=== PATIENT | female | born 1965 | race Caucasian/White ===

== ENCOUNTER 2020-08-11 11:24 | Emergency (ER) | payer MEDICAID ==
--- OUTSIDE RECORDS SUMMARY | 2020-08-11 11:27 | XMS REPORT | Continuity of Care Document ---
:1965 Author Organization [facility] t Address [address] [place] [address] Care Team Providers Name Role Phone UNKNOWN Primary Care Physician Unavailable Advance Directives Directive Decision Effective Date Termination Date Comments Sour ce Yes N/A Historical Fac ility for Backload Problems Condition Condition Condition Status Onset Resolution Last Treating Co mments Source Name Details Category Date Date Treatment Clinician Date Problem Problem Histori tom Facilit y for Backloa d Allergies, Adverse Reactions, Alerts This patient has no known allergies or adverse reactions. Social History Social Habit Start Date Stop Date Quantity Comments Source Sex Assigned At [birth year] Female [facility] Facility 00:00:00 00:00:00 for Backload Smoking Status Start Date Stop Date Source Unknown if ever smoked [facility] Facility for Backload Medications This patient has no known medications. Procedures Procedure Date / Time Performing Clinician Source Performed Cataract extract, 2020-06-22 00:00:00 Historical Facility extracaps, phacoemuls, for Backl oad w/ prosth lens insert, 1 stage, complex XCAPSL CTRC RMVL W/O ECP 2020-06-08 00:00:00 His torical Facility for Backload Inj midazolam 2020-06-08 00:00:00 Historical F acility hydrochloride for Backload Ringers lactate infusion 2020-06-08 00:00:00 His torical Facility for Backload Post chmbr intraocular 2020-06-08 00:00:00 Histo rical Facility lens for Backload Encounters Start End Encounter Admission Attending Care Care Encounter Source Date/Time Date/Time Type Type Clinicians Facility Department ID 2020-06-22 2020-06-22 Jammie LUCIANO [id number] Histori 07:36:00 10:27:[address] [facility] Facil it y for Backloa d 2020-06-08 2020-06-08 Departed JUAN LUCIANO [id number] Histori 07:27:00 09:55:[address] [facility] Day [facility] Facil it y for Backloa d 2016-12-06 2016-12-06 Emergency E [facility] [id number] Medical 09:50:00 09:50:00 [facility] Results Test Description Test Time Test Comments Results Result Comments Source URINE DRUG SCREEN 2020-07-07 02:10:00 Test Item Value Reference Range Interpretation Comme nts AMPHET (test code = BAMP) NEGATIVE NEGATIVE Th is is an unconfirmed screening. Result are to be used for medical purpose s (treatment) only. Not inte nded for non-medical pur poses. Cut-off concentration f or a positive result for each drug: Amphetamine - 1,000 ng/ml B arbiturate - 200 ng/ml Benzodiaz epine - 200 ng/ml Cannabinoids - 50 ng/ml Cocaine - 300 ng/ml Opiat es - 300 ng/ml PCP - 25 ng/ml BARBITURATES (test code = BBAR) NEGATIVE NEGATIVE BENZO (test code = BBENZ) NEGATIVE NEGATIVE CANNABS (test code = BCANN) NEGATIVE NEGATIVE COCAINE (test code = BCOC) NEGATIVE NEGATIVE OPIATES (test code = BOPI) NEGATIVE NEGATIVE PCP (test code = BMTPCP) NEGATIVE NEGATIVE VALPROIC [id number] 02:09:00 Test Item Value Reference Range Interpretation Comments VALP (test code = VALP) 109 UG/ML 50-100 H BMP, BASIC METABOLIC [id number] 02:08:00 Test Item Value Reference Range Interpretation Comments SODIUM (test code 141 MMOL/L 137-145 = NA) K+ (test code = 4.3 MMOL/L 3.5-5.1 KSERUM) CHLORIDE (test 104 MMOL/L 98-107 code = CL) CO2 (test code = 30 MMOL/L 22-30 CO2) BUN (test code = 15 MG/DL 7-17 BUN) CREA (test code = 0.6 MG/DL 0.7-1.2 L CREA) GLUCOSE (test code 112 MG/DL 70-99 H Fasting glucose = GLUCOSE) normal <100 MG/ DL- [employer] recommendation* * CALCIUM (test code 10.4 MG/DL 8.4-10.2 H = CABLOOD) GFR (test code = 112 A GFR of >9 0 GFR) mL/min/1.73m2 mL/min/1.73m2 is considered norm al. The GFR calcula tion on patients ove r 70 years of age is not validated by e salvage win[employer] an d may not represent t he patients true r enal function. [id number] 01:17:00 Test Item Value Reference Range Interpretation Comments WBC (test code = 8.4 K/UL 3.5-10.9 WBC) RBC (test code = 4.64 M/UL 4.0-5.0 RBC) HGB (test code = 14.4 G/DL 11.5-15.5 HGB) HCT (test code = 44.5 % 34-46 HCT) MCV (test code = 95.9 FL 80-98 MCV) MCH (test code = 31.0 PG 28-32 MCH) MCHC (test code = 32.4 G/DL 32.5-36.5 L MCHC) RDW (test code = 12.1 % 11.5-14.5 RDW) PLT (test code = 333 K/UL 150-450 PLT) MPV (test code = 10.7 FL 7.4-10.4 H MPV) MANDIFF (test code = NO MANDIFF) SCAN (test code = NO SCAN) NEUT% (test code = 47.4 % 40-75 NEUT%) LYMPH% (test code = 40.8 % 24-44 LYMPH%) MONO% (test code = 9.8 % 0-13 MONO%) EOS% (test code = 1.4 % 0-4 EOS%) BASO % (test code = 0.4 % 0-2 BASO%) IG (test code = IG) 0 % 0-1 IG% (test code = 0.2 % 0-1 IG% = Metam yelocytes, IG%) Myelocytes, and Promyelocytes. (Immature neutr ophils not including " bands".) > 3% IG indic ates risk of sepsis NRBC% (test code = 0 /100 WBC NRBC%) ABS NEUT (test code 4.0 K/UL 1.2-7.2 = NEUT) [id number] 00:48:00 Test Item Value Reference Range Interpretation Comments GLUCOSE (test code = URGLU) NEGATIVE MG/DL NEG-100 BILIRUBN (test code = URBILI) NEGATIVE NEGATIVE KETONE (test code = URKET) NEGATIVE MG/DL NEGATIVE BLOOD (test code = URBLD) TRACE UR PH (test code = URPH) 8.5 5.0-7.5 H PROTEIN (test code = URPRO) NEGATIVE MG/DL NEGATIVE NITRITES (test code = URNIT) NEGATIVE NEGATIVE UROBILINGEN (test code = 0.2 EU/DL 0.2-1.0 URURO) LEUKOCYT (test code = URLEU) NEGATIVE NEGATIVE UA COLOR (test code = UA YELLOW YELLOW COLOR) CLARITY (test code = CLARITY) CLEAR CLEAR SP GRAV (test code = URSPGRAV) 1.005 1.000-1.025 UAMICRO (test code = UAMICRO) YES WBC (test code = URWBC) 3 /HPF 0-5 RBC (test code = URRBC) 3 /HPF 0-2 H CASTS (test code = CAST) 1 /LPF 0-3 UR EPI (test code = EPI) 62 /LPF BACTERIA (test code = NEGATIVE NONE BACTERIA) CHEST XR 2 [id number] 15:10:00 [facility] 1965 Sex: F[address] [id number] IMAGING REPORTPatient Name: Pretty ROSENBERG of Service: [id number]: 54 Sex: F Order #: [id number] Room: OPEDOB: 1965 X-Ray Number: [id number] Record Number: [id number] Number: [id number] Physician: MEG RUSSELLAROrdering Physician: SUKHI RUSSELL VIEWS 05/18/2020HISTORY: Preoperative respiratory evaluation, cough, congestion, smokerCOMPARISON: NoneTECHNIQUE: PA and lateral views of the chestLeft upper chest neural stimulator device is in place.The lead tip isprojected over the left lower neck soft tissues.Cardiac, hilar, and mediastinal structures are within normal limits forsize. Lungs are moderately hyperinflated without clear acute process.Msbc-td-rrohlugu emphysematous changes are suspected. No effusion orpneumothorax. No acute bony or soft tissue abnormalities are identified.IMPRESSION:No acute process with chronic appearing findings as discussed.Electronically Signed By: Real Dover M.D., 05/18/2020 3:08 PMLegally authenticated by MARISOL JUDD 2020-05-18 15:08:00CT MAXILLOFACIAL WO CONTRAST 2016-12-06 12:30:20CT MAXILLOFACIAL WITHOUT CONTRAST:CLINICAL HISTORY: Left neck tenderness.Radiation dose lowering techniques were used according to ALARAprinciple.Images were obtained through the facial bones, and neckwithout IVcontrast. No previous studies are available for correlation at the timeof interpretation. There is enlargement of the left submandibular glandcompared to the contralateral right. 2 small calcifications are seenwithin the left submandibular gland image measuring approximately 3 mmin diameter.There also are 2 small calculi within Bledsoe's duct. Thelargest measures 2.5 mm with the smallest measuring 1 mm. There isenlargement of the left submandibular gland which may reflectsialoadenitis. A vagus nerve stimulator is in place within the left sideof the neck. Patient is status post a previousright frontotemporalcraniotomy. By history the patient had a aneurysm repair.IMPRESSION:1. Sialolithiasis with the 2 calculi seen within the left submandibulargland and 2 small stones within the left Vaughn's duct. The leftsubmandibular gland is also enlarged compared to the contralateral rightsuspect for sialoadenitis.Report was printed in the emergency room at 1240 hours.CT MAXILLOFACIAL W [id number] 12:30:20CT MAXILLOFACIAL WITHOUT CONTRAST:CLINICAL HISTORY: Left neck tenderness.Radiation dose lowering tech niques were used according to ALARAprinciple.Images were obtained through the facial bones, and neckwithout IVcontrast. No previous studies are available for correlation at the timeof interpretation. There is enlargement of the left submandibular glandcompared to the contralateral right. 2 small calcifications are seenwithin the left submandibular gland image measuring approximately 3 mmin diameter.There also are 2 small calculi within Bledsoe's duct. Thelargest measures 2.5 mm with the smallest measuring 1 mm. There isenlargement of the left submandibular gland which may reflectsialoadenitis. A vagus nerve stimulator is in place within the left sideof the neck. Patient is status post a previousright frontotemporalcraniotomy. By history the patient had a aneurysm repair.IMPRESSION:1. Sialolithiasis with the 2 calculi seen within the left submandibulargland and 2 small stones within the left Bledsoe's duct. The leftsubmandibular gland is also enlarged compared to the contralateral rightsuspect for sialoadenitis.Report was printed in the emergency room at 1240 hours.
[2020-08-11] MEDS ORDERED: CLINDAMYCIN 600MG/D5W 600 MG/50 ML BAG IV ONE (12:25)
[2020-08-11] MEDS ORDERED: NA CHLORIDE 0.9% 1,000 ML ONE (12:25)
--- NOTE | 2020-08-11 12:38 | RAD REPORT ---
EXAM DESCRIPTION: Adrienne Single View08/11/2020 12:26 pm CLINICAL HISTORY: Congestion COMPARISON: none FINDINGS: The lungs appear clear of acute infiltrate. The heart is normal size. Stimulator extends into the left neck IMPRESSION: No acute abnormalities displayed
[2020-08-11] MEDS ORDERED: KETOROLAC 30 MG/ML INJ ONE (12:51)
[2020-08-11 12:56] LABS: Basophils % 0.5 % (0-1.3); Hematocrit 44.2 % (36.0-45.0); Lymphocytes % 11.5 % (15.3-44.8); MPV 10.2 fL (7.6-11.3)
[2020-08-11 13:03] LABS: ALT/SGPT 14 U/L (12-78); AST/SGOT 7 U/L (15-37); Albumin 4.3 g/dL (3.4-5.0); Alkaline Phosphatase 91 U/L (45-117); BUN Blood Urea Nitrogen 9 mg/dL (7-18); Bicarbonate 31 mmol/L (21-32); Bilirubin Total 0.4 mg/dL (0.2-1.0); Glucose Level 99 mg/dL (74-106); Potassium 3.9 mmol/L (3.5-5.1); Protein, Total 7.9 g/dL (6.4-8.2); Sodium Level 140 mmol/L (136-145)
--- NOTE | 2020-08-11 13:42 | RAD REPORT ---
EXAM DESCRIPTION: CT - Soft Tissue Neck W/Contr - 08/11/2020 1:15 pm CLINICAL HISTORY: Neck pain and swelling COMPARISON: None. TECHNIQUE: Computed axial tomography of the neck was obtained. 50 cc Isovue 300 was administered in travenously. Coronal and sagittal reconstruction was performed. All CT scans are performed using dose optimization technique as appropriate and may include automated exposure control or mA/KV adjustment according to patient size. FINDINGS: Vague small low-density areas are present within the left submandibular gland. Stranding i s present within the adjacent extending to the left floor of mouth. A edema involves the epiglottis a nd left lateral oropharynx. Remainder of the airway is unremarkable. The parotid, right submandibular and thyroid glands are unremarkable. . Fluid within the sinuses/mastoids is not noted. IMPRESSION: Vague small low-density areas within the left submandibular gland probably early abscess . There is a left floor of mouth cellulitis. The epiglottis and left lateral oropharyngeal wall are e dematous.
--- NOTE | 2020-08-11 14:29 | EDPHYS ---
Physician Documentation [facility] Name: Cristina Delong Age: 54 yrs Sex: Female : 1965 Arrival Date: 08/11/2020 Time: 11:25 Bed 16 Private MD: ED Physician Denia Bonilla HPI: 08/11 12:07 This 54 yrs old Female presents to ER via Ambulatory with complaints of left neck pain ma2 and swelling. 12:07 Onset: The symptoms/episode began/occurred gradually, 1 day(s) ago. Associated signs ma2 and symptoms: Pertinent negatives: diaphoresis, hemoptysis. Severity of symptoms: At their worst the symptoms were moderate in the emergency department the symptoms are unchanged. The patient has not experienced similar symptoms in the past. Historical: - Allergies: 11:35 PENICILLINS; iw - Home Meds: 11:35 Depakene Oral [Active]; Ativan Oral [Active]; Clonazepam Oral [Active]; iw - PMHx: 11:35 Seizures; iw 11:36 COPD; iw - PSHx: 11:35 brain surgery at 11 years old; Hysterectomy; iw - Immunization history:: Adult Immunizations not up to date. - Social history:: Smoking status: Patient reports the use of cigarette tobacco products, smokes one pack cigarettes per day. Patient/guardian denies using alcohol, IV drugs, The patient lives with family. - Family history:: not pertinent. ROS: 12:07 Constitutional: Negative for fever, chills, and weight loss. ma2 12:07 All other systems are negative. Exam: 12:07 Constitutional: This is a well developed, well nourished patient who is awake, alert, ma2 and in no acute distress. Head/Face: Normocephalic, atraumatic. Eyes: Pupils equal round and reactive to light, extra-ocular motions intact. Lids and lashes normal. Conjunctiva and sclera are non-icteric and not injected. Cornea within normal limits. Periorbital areas with no swelling, redness, or edema. ENT: Nares patent. No nasal discharge, no septal abnormalities noted. Tympanic membranes are normal and external auditory canals are clear. Oropharynx with no redness, swelling, or masses, exudates, or evidence of obstruction, uvula midline. Mucous membranes moist. Neck: left neck swelling at submandibular area, soft and tender, no skin changes, d/t severe pain unable to check for fluctuence. Trachea midline, no thyromegaly or masses palpated, no full range of motion without nuchal rigidity, or vertebral point tenderness. No Meningismus. Chest/axilla: Normal chest wall appearance and motion. Nontender with no deformity. No lesions are appreciated. Cardiovascular: Regular rate and rhythm with a normal S1 and S2. No gallops, murmurs, or rubs. Normal PMI, no JVD. No pulse deficits. Respiratory: Lungs have equal breath sounds bilaterally, clear to auscultation and percussion. No rales, rhonchi or wheezes noted. No increased work of breathing, no retractions or nasal flaring. Abdomen/GI: Soft, non-tender, with normal bowel sounds. No distension or tympany. No guarding or rebound. No evidence of tenderness throughout. Skin: Warm, dry with normal turgor. Normal color with no rashes, no lesions, and no evidence of cellulitis. MS/ Extremity: Pulses equal, no cyanosis. Neurovascular intact. Full, normal range of motion. Neuro: Awake and alert, GCS 15, oriented to person, place, time, and situation. Cranial nerves II-XII grossly intact. Motor strength 5/5 in all extremities. Sensory grossly intact. Cerebellar exam normal. Normal gait. Vital Signs: 11:32 BP 169 / 102; Pulse 112; Resp 18; Temp 99.9(TE); Pulse Ox 93% on R/A; Weight 57.15 kg; iw Height 5 ft. 3 in. (160.02 cm); Pain 10/10; 11:59 Pulse 108; Resp 20; Pulse Ox 93% on R/A; bw 12:58 BP 149 / 98; Pulse 102; Resp 18; Pulse Ox 95% on R/A; bw 16:56 BP 147 / 90; Pulse 103; Resp 18; Pulse Ox 95% on R/A; bw 11:32 Body Mass Index 22.32 (57.15 kg, 160.02 cm) iw MDM: 11:40 Patient medically screened. ma2 14:23 Differential diagnosis: Anxiety Reaction Bronchitis Psychogenic. Differential ma2 diagnosis: reactive airway disease, Sepsis. Data reviewed: vital signs, nurses notes. ED course: patient has left submandibular abscess and cellulitis of oral cavity and floor of mouth. she is able to speak with no distress, no stridor, oropharynx id mildly edematous yet intact. patient is been in er for 3 hrs and has mildly improved after antibiotics . 14:23 ED course: dr. steen has been contacted today and she stated she is out of town. will ma2 transfer for higher level of care as no ent service available . 14:30 ED course: floor of mouth is not hard, no Carlos angina. [facility] 15:10 ED course: discussed with dr. Viveros ent at [facility] and accepted by Hospitalist dr. laith Sahu. 08/11 12:02 Order name: Blood Culture Adult (2) [facility] 08/11 12:02 Order name: CBC with Diff; Complete Time: 13:31 [facility] 08/11 12:02 Order name: CMP; Complete Time: 13:31 [facility] 08/11 12:02 Order name: Strep; Complete Time: 13:36 [facility] 08/11 13:34 Order name: Throat Culture EDMS 08/11 12:02 Order name: CT Soft Tissue Neck W/contr; Complete Time: 13:55 [facility] 08/11 12:03 Order name: Chest Single View XRAY; Complete Time: 13:31 [facility] 08/11 14:09 Order name: SARS-COV-2 RT PCR; Complete Time: 14:11 EDMS Administered Medications: 12:29 Drug: Clindamycin 600 mg Route: IVPB; Infused Over: 30 mins; Site: left antecubital; bw 16:58 Follow up: Response: No adverse reaction; IV Status: Completed infusion bw 12:30 Drug: NS 0.9% 1000 ml Route: IV; Rate: 1 bolus; Site: left antecubital; bw 16:58 Follow up: Response: No adverse reaction; IV Status: Completed infusion bw 12:59 Drug: TORadol 30 mg Route: IVP; Site: left antecubital; bw 16:58 Follow up: Response: No adverse reaction bw 14:56 Drug: MethylPrednisoLONE 125 mg Route: IVP; Site: left antecubital; bw 16:59 Follow up: Response: No adverse reaction bw 14:56 Drug: Benadryl (diphenhydrAMINE) 25 mg Route: IVP; Site: left antecubital; bw 16:57 Follow up: Response: No adverse reaction 14:56 Drug: vancoMYCIN 1 grams Route: IVPB; Infused Over: 2 hrs; Site: left antecubital; bw 16:57 Follow up: Response: No adverse reaction; IV Status: Completed infusion Disposition: 08/11/20 14:28 Transfer ordered to Other Acute Care Facility. Diagnosis are Cutaneous abscess of neck, Cellulitis and acute lymphangitis of face and neck. - Reason for transfer: Higher level of care. - Accepting physician is [facility]. - Condition is Stable. - Problem is new. - Symptoms are unchanged. Signatures: Dispatcher [employer] EDMS Nanci Salcido RN RN iw Denia Bonilla MD MD ma2 Shirley Anne RN RN ca1 Adia Crawford RN RN Corrections: (The following items were deleted from the chart) 13:12 12:25 Maxillofacial W/Cont+CT.RAD.BRZ ordered. EDMS EDMS 13:13 12:02 CORONAVIRUS+MR.LAB.BRZ ordered. EDMS EDMS 18:54 14:28 08/11/2020 14:28 Transfer ordered to Other Acute Care Facility. Diagnosis is ca1 Cutaneous abscess of neck; Cellulitis and acute lymphangitis of face and neck. Reason for transfer: Higher level of care. Accepting physician is [facility]. Condition is Stable. Problem is new. Symptoms are unchanged. ma2
--- NOTE | 2020-08-11 14:29 | ER ---
Nurse's Notes [facility] Name: Cristina Delong Age: 54 yrs Sex: Female : 1965 Arrival Date: 08/11/2020 Time: 11:25 Bed 16 Private MD: Diagnosis: Cutaneous abscess of neck;Cellulitis and acute lymphangitis of face and neck Presentation: 08/11 11:32 Chief complaint: Spouse and/or significant other states: on the way home from boat [employer] yesterday she started having pain in left side of neck and had some swelling, woke up this morning and it was worse, can hardly open her mouth. Coronavirus screen: At this time, the client does not indicate any symptoms associated with coronavirus-19. Ebola Screen: Patient negative for fever greater than or equal to 101.5 degrees Fahrenheit, and additional compatible Ebola Virus Disease symptoms Patient denies exposure to infectious person. Patient denies travel to an Ebola-affected area in the 21 days before illness onset. No symptoms or risks identified at this time. Initial Sepsis Screen: Does the patient meet any 2 criteria? No. Patient's initial sepsis screen is negative. Does the patient have a suspected source of infection? No. Patient's initial sepsis screen is negative. Risk Assessment: Do you want to hurt yourself or someone else? Patient reports no desire to harm self or others. Onset of symptoms was August 10, 2020. 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 - Social history:: Smoking status: Patient reports the use of cigarette tobacco products, smokes one pack cigarettes per day. Patient/guardian denies using alcohol, IV drugs, The patient lives with family. - Family history:: not pertinent. Screenin:59 Abuse screen: Denies threats or abuse. Nutritional screening: No deficits noted. bw Tuberculosis screening: No symptoms or risk factors identified. Fall Risk None identified. Assessment: 11:59 Pain: Complains of pain in throat tongue. Cardiovascular: Rhythm is regular. bw Respiratory: Airway is patent Respiratory effort is even, unlabored, Breath sounds are clear Breath sounds are diminished bilaterally. 12:58 Reassessment: Patient appears in no apparent distress at this time. Patient and/or bw family updated on plan of care and expected duration. Pain level reassessed. Patient is alert, oriented x 3, equal unlabored respirations, skin warm/dry/pink. 14:02 Reassessment: Patient appears in no apparent distress at this time. Patient and/or bw family updated on plan of care and expected duration. Pain level reassessed. Patient is alert, oriented x 3, equal unlabored respirations, skin warm/dry/pink. 16:55 Reassessment: Patient appears in no apparent distress at this time. No changes from bw previously documented assessment. Patient and/or family updated on plan of care and expected duration. Pain level reassessed. Patient is alert, oriented x 3, equal unlabored respirations, skin warm/dry/pink. food provided to patient. 18:22 Reassessment: report given to devon. Vital Signs: 11:32 BP 169 / 102; Pulse 112; Resp 18; Temp 99.9(TE); Pulse Ox 93% on R/A; Weight 57.15 kg; iw Height 5 ft. 3 in. (160.02 cm); Pain 10/10; 11:59 Pulse 108; Resp 20; Pulse Ox 93% on R/A; bw 12:58 BP 149 / 98; Pulse 102; Resp 18; Pulse Ox 95% on R/A; bw 16:56 BP 147 / 90; Pulse 103; Resp 18; Pulse Ox 95% on R/A; bw 11:32 Body Mass Index 22.32 (57.15 kg, 160.02 cm) iw ED Course: 11:25 Patient arrived in ED. ds1 11:34 Triage completed. iw 11:35 Arm band placed on. iw 11:40 Denia Bonilla MD is Attending Physician. ma2 11:59 Adia Crawford, SHILPA is Primary Nurse. bw 11:59 Patient has correct armband on for positive identification. Call light in reach. Side bw rails up X 1. Pulse ox on. NIBP on. 11:59 No provider procedures requiring assistance completed. bw 12:08 Radiology exam delayed due to lab results not completed at this time. (BUN/Creatinine) md1 IV insertion attempt and/or patient not having appropriate IV at this time. 12:26 Chest Single View XRAY In Process Unspecified. EDMS 13:15 CT Soft Tissue Neck W/contr In Process Unspecified. EDMS 14:15 initiated a transfer with Jason from the [facility] Transfer Center. eb 14:[address] Viveros the ENT international flight attendant for [facility] with Dr. Bonilla for patient transfer eb consultation. 15:06 connected the Hospitalist international flight attendant for [facility] with Dr. Bonilla for patient eb transfer consultation. 16:17 administrative approval given by Rachel Mccall Rn/ patient has been accepted to [facility] 4A [id number]/ Dr. Gaston Taylor has accepted the patient in transfer/ report to be called to [phone]. Administered Medications: 12:29 Drug: Clindamycin 600 mg Route: IVPB; Infused Over: 30 mins; Site: left antecubital; bw 16:58 Follow up: Response: No adverse reaction; IV Status: Completed infusion bw 12:30 Drug: NS 0.9% 1000 ml Route: IV; Rate: 1 bolus; Site: left antecubital; bw 16:58 Follow up: Response: No adverse reaction; IV Status: Completed infusion bw 12:59 Drug: TORadol 30 mg Route: IVP; Site: left antecubital; bw 16:58 Follow up: Response: No adverse reaction bw 14:56 Drug: MethylPrednisoLONE 125 mg Route: IVP; Site: left antecubital; bw 16:59 Follow up: Response: No adverse reaction bw 14:56 Drug: Benadryl (diphenhydrAMINE) 25 mg Route: IVP; Site: left antecubital; bw 16:57 Follow up: Response: No adverse reaction bw 14:56 Drug: vancoMYCIN 1 grams Route: IVPB; Infused Over: 2 hrs; Site: left antecubital; bw 16:57 Follow up: Response: No adverse reaction; IV Status: Completed infusion bw Outcome: 14:28 ER care complete, transfer ordered by MD. ozuna 18:54 Patient left the ED. ca1 Signatures: Dispatcher [employer] EDMarcelle Loredo ds1 Nanci Salcido RN RN iw Denia Bonilla MD MD ma2 Teodora Holliday Cheryl, RN RN [facility] Supriya Reynolds md1 Adia Crawford RN RN bw Corrections: (The following items were deleted from the chart) 11:41 11:32 BP 169 / 102; Pulse 112bpm; Resp 18bpm; Pulse Ox 93% RA; 57.15 kg; Height 5 ft. 3 iw in.; BMI: 22.3; Pain 10/; iw
[2020-08-11] MEDS ORDERED: VANCOMYCIN 1 GM/VIAL ONE (15:01)
[2020-08-11] MEDS ORDERED: NA CHLORIDE 0.9% 250 ML ONE (15:01)
[2020-08-11] MEDS ORDERED: DIPHENHYDRAMINE 50 MG/ML VIAL ONE (15:01)
[2020-08-11] MEDS ORDERED: METHYLPREDNISOLONE 125 MG INJ ONE (15:01)
[2020-08-12 07:30] VITALS: TEMP 99.9
[2020-08-12 07:32] VITALS: O2SAT 95
[2020-08-12 07:34] VITALS: BP 147/90
== END 2020-08-11 18:54 ==
LOC: ER 11:24
DX: L02.11 Cutaneous abscess of neck (principal); L03.221 Cellulitis of neck; L03.211 Cellulitis of face; L03.212 Acute lymphangitis of face; L03.222 Acute lymphangitis of neck; G40.909 Epilepsy, unspecified, not intractable, without status epilepticus; J44.9 Chronic obstructive pulmonary disease, unspecified; F17.210 Nicotine dependence, cigarettes, uncomplicated; Z88.0 Allergy status to penicillin; Z20.822 Contact with and (suspected) exposure to COVID-19
CPT/HCPCS: 96365; 87040 ×2; 87070; 85025; 36415; 87081; 80053; 70491; 71045; 96375; 99283; 96366; U0003; Q9967; J1200; J3370; J7050; J7030; J2930